=== PATIENT | female | born 1995 | race African-American/Black ===

== ENCOUNTER 2019-09-06 10:48 | Emergency (ER) | payer OTHER ==
[2019-09-06 10:59] VITALS: BP 116/75; PULSE 100; TEMP 98.4; BMI 22.3
[2019-09-06] MEDS ORDERED: KETOROLAC TROMETHAMINE 30 MG/1 ML VIAL IM ONE (11:21)
[2019-09-06] MEDS ORDERED: CYCLOBENZAPRINE HCL 5 MG TABLET PO PRN (11:21)
--- NOTE | 2019-09-06 11:26 | PDOC ---
History of Present Illness - General Chief Complaint: Back Pain Stated Complaint: LWR BACK PAIN Time Seen by Provider: 09/06/19 11:13 History Source: Patient - History of Present Illness Initial Comments: 09/06/19 11:20 24-year-old female complaining of lower back pain reports that she woke up with pain now pain is worse with movement and sitting. Denies urinary symptoms, flank pain, fever/chills. Denies trauma/injury denies heavy lifting. Patient reports that she is unsure if she "slept wrong" No past medical history Past History - Past Medical History Allergies/Adverse Reactions: Allergies Allergy/AdvReac Type Severity Reaction Status Date / Time No Known Allergies Allergy Verified 09/06/19 10:56 Home Medications: Ambulatory Orders Ibuprofen 600 mg PO TID PRN #20 tablet 09/06/19 COPD: No - Surgical History Cholecystectomy: No - Immunization History Immunization Up to Date: No - Psycho Social/Smoking Cessation Hx Smoking History: Never smoked Have you smoked in the past 12 months: No Information on smoking cessation initiated: No Hx Alcohol Use: No Drug/Substance Use Hx: No Review of Systems - Review of Systems Able to Perform ROS?: Yes Is the patient limited [place] proficient: No Respiratory: No: Symptoms reported, See HPI, Cough, Orthopnea, Shortness of Breath, SOB with Exertion, SOB at Rest, Stridor, Wheezing, Productive cough, Hemoptysis, Other : No: Symptoms Reported, See HPI, Burning, Dysuria, Discharge, Frequency, Flank Pain, Hematuria, Incontinence, Pain, Urgency, Testicular Mass, Testicular Swelling, Lesions, Testicular Pain, Other Musculoskeletal: Yes: Back Pain *Physical Exam - Vital Signs Last Vital Signs Temp Pulse Resp BP Pulse Ox 98.4 F 100 H 18 116/75 99 09/06/19 10:57 09/06/19 10:57 09/06/19 10:57 09/06/19 10:57 09/06/19 10:57 - Physical Exam General Appearance: Yes: Appropriately Dressed Respiratory/Chest: positive: Lungs Clear, Normal Breath Sounds Musculoskeletal: positive: Normal Inspection, Muscle Spasm (paraspinal lumbar area). negative: Vertebral Tenderness Extremity: positive: Normal Capillary Refill, Normal Inspection Integumentary: positive: Normal Color, Dry, Warm Neurologic: positive: Fully Oriented, Alert, Normal Mood/Affect Medical Decision Making - Medical Decision Making 09/06/19 11:25 A: back pain P: valium: patient is not driving and taking a taxi home toradol Discharge - Discharge Information Problems reviewed: Yes Clinical Impression/Diagnosis: Back pain Qualifiers: Back pain location: low back pain Chronicity: acute Back pain laterality: unspecified Sciatica presence: without sciatica Qualified Code(s): M54.5 - Low back pain Condition: Stable Disposition: HOME - Additional Discharge Information Prescriptions: Ibuprofen 600 mg PO TID PRN #20 tablet PRN Reason: Pain - Follow up/Referral - Patient Discharge Instructions Patient Printed Discharge Instructions: Low Back Pain Additional Instructions: Do light stretches Apply ice to the area for the first 24 hours. Then alternate with ice and heat after. Take ibuprofen every 6 hours as needed for pain. Take Flexeril as prescribed for muscle spasm. Flexeril can make you sleepy, do not drive or operate heavy machinery after taking the medication. Follow-up with an orthopedic doctor if symptoms persist. A referral was given to you today. Return to the emergency room for any worsening symptoms. - Post Discharge Activity Work/Back to School Note: Back to Work
[2019-09-06] MEDS ORDERED: diazePAM 5 MG TABLET PO ONE (11:28)
[2019-09-06] MEDS ORDERED: KETOROLAC TROMETHAMINE 30 MG/1 ML VIAL ONE (11:28)
[2019-09-06] MEDS ORDERED: diazePAM 5 MG TABLET ONE (11:29)
== END 2019-09-06 11:35 | disposition home or self-care (01) ==
LOC: JERFT 10:48
PROC: 3E0233Z Introduction of Anti-inflammatory into Muscle, Percutaneous Approach (ICD-10-PCS; principal; 2019-09-06)
DX: M54.5 Low back pain (principal)
CPT/HCPCS: 96372; 99281-25